=== PATIENT | male | born 1990 | race Caucasian/White ===

== ENCOUNTER 2017-04-17 19:29 | Emergency (ER) | payer OTHER ==
[~2017-04-17] VITALS: Ht 193 cm; Wt 172.7 kg
[2017-04-17 19:35] VITALS: BP 127/82; PULSE 92; RESP 17; O2SAT 97
[2017-04-17] MEDS ORDERED: Ondansetron 2 mg/mL 2 mL Inj IVPUSH PRN (21:10)
[2017-04-17] MEDS ORDERED: 0.9% Sodium Chloride 1,000 ML IV ONE (21:10)
--- NOTE | 2017-04-17 21:11 | ED.REPORT ---
HPI-General Illness Date of Service Apr 17, 2017 ED Provider: Eulalio Moncada MD Patient is a 27 year old male who presents to the ED complaining of epigastric pain that started after being discharged from [facility] on 04/06/17. The patient was initially diagnosed with colitis and discharged with Cipro and Flagyl. Once he went home he received a call where he was told he had an "infarcted spleen" and needed to return to the ED two weeks ago (04/02/17). He states that he had a bumper fall on his hip and abdomen before the abdominal pain had started. The patient was then hospitalized for 4 days. He has continued to experience left sided abdominal pain after being discharged but the epigastric pain is a new symptom. Patient also reports mucousy bowel movements, dark urine and an odd taste in his mouth. The patient reports that the epigastric pain happens about 5 seconds after he swallows and the pain on the left side is constant. He states that it feels like his abdomen is "full of fluids" and pain is exacerbated by deep inhalation. 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 He was apparently sent home to follow up results of hypercoagulable workup with his primary care physician that he has not been seen yet. Nursing Notes Stated Complaint: ABDOMINAL PAIN, HEART PALPITATIONS Chief Complaint: Male Abdominal Pain Nursing Notes Reviewed: Yes Allergies: Coded Allergies: Penicillins (Verified Allergy, Severe, 06/25/09) Scheduled Omeprazole (Omeprazole) 40 Mg Capsule. 40 MG PO DAILY General Time Seen by MD: 21:05 Chief Complaint Abdominal pain Hx Obtained From: Patient Arrived By: Walk-in Sudden in Onset?: Yes Onset Occurred: More than a week ago... (2 weeks) Symptom Duration: Since onset Location: : Abdomen Quality: Burning, Painful Severity: Current: Moderate Recent Healthcare: Recent doctor visit, Recent hospitalization Similar Sx Previous: Yes Past Medical History Past Medical History infarcted spleen Smoking History Unknown if Ever Smoker Social History Other Social History: Good social support Ambulatory Status Independent Review of Systems Full Review of Systems Constitutional: Denies: Chills, Fever Respiratory: Denies: Non-productive cough, Shortness of breath GI: Reports: Abdominal pain, Mucousy stool, Denies: Vomiting Skin: Denies Itching, Denies Rash Complete sys rev & neg: except as marked. Physical Exam Vital Signs Vital Signs Date Time Temp Pulse Resp B/P Pulse Ox O2 Delivery O2 Flow Rate FiO2 04/18/17 00:00 75 18 159/63 97 Room Air 04/17/17 19:35 37.1 92 17 127/82 97 Room Air Initial VS: Reviewed General/Constitutional: Awake, Alert Head / Eyes: Atraumatic, Normocephalic, PERRL, EOMI ENT: Atraumatic, Airway patent slightly dry mucous membranes Respiratory / Chest: Atraumatic, Breath sounds NL, Breath sounds = bilat, No respiratory distress Cardiovascular: Heart rate NL, Regular rhythm, Heart sounds NL, No gallop, No murmurs, No rubs Abdomen: Atraumatic, Soft, No guarding, No rebound mild tender epigastric no rigidity bowel sounds present Upper Extremities Upper Extremity / MS: Atraumatic, Full range of motion Lower Extremity / Pelvis / MS: Atraumatic, Full range of motion, Non-tender, No edema Skin: Atraumatic, Color NL, No rash, Warm, Dry Neurologic: Oriented X3, Speech NL Psychiatric: Affect NL, Mood NL Interpretation & Diagnostics Lab Results Interpretation Result Diagram: 04/17/17212904/17/172129 Test 04/17/17 21:30 04/17/17 21:53 04/17/17 23:40 White Blood Count 7.5th/mm3 (3.8-10.1) Red Blood Count 4.29mil/mm3 (4.40-5.80) Hemoglobin 12.8g/dL (13.8-17.2) Hematocrit 37.0% (41.0-50.0) Mean Corpuscular Volume 86.2fL (81-100) Mean Corpuscular Hemoglobin 29.8pg (27.0-35.0) Mean Corpuscular Hemoglobin Concent 34.6% (32.0-37.0) Red Cell Distribution Width 14.4% (12.3-15.4) Platelet Count 210bil/L (150-400) Neutrophils (%) (Auto) 41.8% (40-74) Lymphocytes (%) (Auto) 43.6% (14-46) Monocytes (%) (Auto) 13.0% (4-12) Eosinophils (%) (Auto) 0.9% (0-5) Basophils (%) (Auto) 0.4% (0-3) Sodium Level 138mEq/L (134-144) Potassium Level 3.9mEq/L (3.5-5.2) Chloride Level 101mEq/L (97-108) Carbon Dioxide Level 24mmol/L (18-29) Blood Urea Nitrogen 13mg/dL (6-20) Creatinine 0.69mg/dL (0.76-1.27) Estimat Glomerular Filtration Rate 144mL/min (>59) Glucose Level 96mg/dL (60-99) Calcium Level 9.2mg/dL (8.5-10.1) Magnesium Level 2.0mg/dL (1.6-2.6) Total Bilirubin 0.4mg/dL (0.0-1.2) Aspartate Amino Transf (AST/SGOT) 35U/L (0-50) Alanine Aminotransferase (ALT/SGPT) 60U/L (0-44) Alkaline Phosphatase 64U/L (25-150) Total Protein 7.0g/dL (6.4-8.4) Albumin 4.1g/dL (3.4-5.0) Lipase 23U/L (13-60) Hold Davis Top Tube Received (Received) Urine Color Yellow (YELLOW) Urine Appearance Clear (CLEAR,HAZY) Urine pH 5.5 (5.0-8.0) Urine Specific Kiron 1.030 (1.003-1.035) Urine Protein Negativemg/dL (NEG,TRACE) Urine Glucose (UA) Negativemg/dL (NEGATIVE) Urine Ketones Negativemg/dL (NEGATIVE) Urine Occult Blood Negative (NEGATIVE) Urine Nitrite Negative (NEGATIVE) Urine Bilirubin Negative (NEGATIVE) Urine Urobilinogen Normalmg/dL (NORMAL) Urine Leukocyte Esterase Negative (NEGATIVE) Urine RBC 0-2/hpf (0-2) Urine WBC 0-5/hpf (0-5) Urine Epithelial Cells Occasional/hpf (NONE-MOD) Urine Crystals Oxalic acid crystals (NONE Urine Bacteria None/hpf (NONE-FEW) Urine Hyaline Casts None/lpf (NONE) Urine Granular Casts None seen (NONE SEEN) Urine Waxy Casts None seen (NONE SEEN) Urine Red Blood Cell Casts None seen (NONE SEEN) Urine White Blood Cell Casts None seen (NONE SEEN) Urine Mucus Present (None Seen) Urine Trichomonas None seen (NONE SEEN) Urine Yeast None (NONE SEEN) Urinalysis Comment None Urine Culture Reflexed Not indicated Re-Eval/Medical Decision Med Decision/Clinical Course Patient is a 27-year-old male with a history of frequent emergency department visits/previous workup, recently discharged from [facility] where he was being worked up for a possible splenic infarct. He presents to the emergency department due to epigastric pain that is worse with eating. He has not followed up with his regular physician Frank was hypercoagulable workup for cause of his splenic infarct. Here in the emergency department the patient is afebrile with stable vital signs and examination as above. Orders: IV fluids, Dilaudid, Zofran and GI cocktail Labs: CBC unremarkable, no leukocytosis CMP unremarkable besides a hematocrit of 37 and mildly elevated ALT at 60. Normal lipase and electrolytes. Good kidney function. UA negative Obtained records from [facility]: CT KUB on 04/02/17 which demonstrated hepatosplenomegaly and splenic infarct. The ultrasound performed on 04/02/17 demonstrated splenomegaly however, no splenic abnormality was identified. The repeat CT on 04/02/17 stated that the hypodensity with the spleen was not demonstrated and the prior might have been due to artifact. Patient has no history or family history hypocoagulability. He was admitted to [facility] with a plan for a hypocoagulability workup and pain control. There was discussion of obtaining a CT angio of the mesentaric vessels, however this was not performed. He was discharged to follow-up with his primary care physician regarding hypercoagulable workup. Patient was discussed in depth with attending radiologist who reviewed his images. It was felt that the information splenic infarct was quite old and was not acute. It was also noted the patient has had many CT scans in the past it was not felt that he would benefit from angiography and that the risks of radiation outweighs any potential benefit. Patient was treated with medications with symptom improvement. He was advised to follow-up with his primary care physician regarding the previously ordered hypercoagulable workup. He was prescribed omeprazole for presumed gastritis. He may need upper endoscopy in the future however he can follow this up through his primary care physician. Prior to discharge follow-up and return precautions were reviewed in detail with the patient who verbalized understanding and agreement with the plan. The patient was discharged in stable condition. Time of Eval: 23:32 Re-Evaluation/Progress Note: Discussed findings and plan for discharge. Patient understands and agrees to plan. All questions were addressed. 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 Given the multiple CTs in recent past, they do not recommend any more imaging. Counseled Regarding: Diagnosis, Lab results, Need for follow-up, When/why to return to ED Discharge & Departure Primary Impression: Gastritis Gastritis type: unspecified gastritis Chronicity: acute Gastritis bleeding : without bleeding Qualified Code: K29.00 - Acute gastritis without bleeding Additional Impressions: Generalized abdominal pain Anxiety Infarction of spleen Disposition: Home Discharge Condition All VS Reviewed: Yes Condition: Stable Patient Instructions: Gastritis (ED) Additional Instructions: Thank you for seeking care at the emergency room. It is difficult for us to make definitive diagnoses in the ED but we believe that you are experiencing gastritis. Take Omeprazole as prescribed. Regarding your splenic infarct, this appeared to be old and you should follow up with [facility] to further review the labs you obtained during your hospitalization. Our primary goal today in the Emergency Department was to evaluate you for any life-threatening conditions. Your evaluation was reassuring. You should follow-up with your primary doctor regarding the tests that you obtained at [facility]. You should return to the Emergency Department immediately if you develop fevers , vomiting, cough, shortness of breath, chest pain, lightheadedness, weakness or any other concerning signs or symptoms. Thank you for letting us partake in your care today. Referrals: Dao Sloan MD (PCP) Scribe Attestation Portions of this note were transcribed by Lisa Mendenhall. I, Dr. Moncada personally performed the history, physical exam and medical decision-making; I reviewed and confirmed the accuracy of the information in the transcribed note. Signed by: Britney Garcia, 04/17/17 copies to: Dao Sloan MD, Beck O MD Apr 17, 2017 21:11 Alexa Mendenhall Apr 17, 2017 21:21
[2017-04-17] MEDS ORDERED: LidocaineVisc 2%:Antacid 1:1 10 mL Syringe PO ONE (21:25)
[2017-04-17 22:00] LABS: BASOPHILS % (AUTO) 0.4 % (0-3); EOSINOPHILS % (AUTO) 0.9 % (0-5); Mean Corpuscular Hemoglobin 29.8 pg (27.0-35.0); Mean Corpuscular Volume 86.2 fL (81-100); NEUTROPHILS % (AUTO) 41.8 % (40-74); Platelet Count 210 bil/L (150-400)
[2017-04-17] MEDS: HYDROmorphone 0.5 mg/0.5 mL iSecure Syringe IVPUSH PRN ×2 (22:05→23:14)
[2017-04-17] MEDS ORDERED: OMEP40CA36 PO (23:36)
[2017-04-18] VITALS: BP 159/63; PULSE 75; RESP 18; O2SAT 97
[2017-04-18 00:21] LABS: APPEARANCE,URINE CLEAR (CLEAR,HAZY); COLOR,URINE YELLOW (YELLOW); OCCULT BLOOD,URINE NEGATIVE (NEGATIVE); PH,URINE 5.5 (5.0-8.0); UROBILINOGEN,URINE NORMAL (NORMAL)
== END 2017-04-18 | disposition home or self-care (01) ==
LOC: SED 19:29
DX: K29.00 Acute gastritis without bleeding (principal); F41.9 Anxiety disorder, unspecified; D73.5 Infarction of spleen; Z88.0 Allergy status to penicillin
CPT/HCPCS: 36415; 80053; 81000; 83690; 83735; 85025; 96361; 96374; 96375; 99285; J1170; J2405; J7030

== ENCOUNTER → 2017-05-20 | Day surgery (SDC) | payer OTHER ==
[~2017-05-20] VITALS: Ht 193 cm; Wt 170.0 kg
[~2017-05-20] MED LIST: Lactated Ringer's 1,000 ML IV ONE; OMEP40CA36 PO
[2017-05-20 11:24] VITALS: BP 137/63; PULSE 78; RESP 16; O2SAT 95
--- NOTE | 2017-05-20 13:22 | PCM.ENDEGD ---
EGD Date of Service: May 20, 2017 Physician Raji Knott MD Pre Procedure Diagnosis: Reflux Post Procedure Dx & Findings: Esophageal ulcer Procedure Esophagogastroduodenoscopy PROCEDURE IN DETAIL: Sedation provided by anesthesiology After proper sedation, Olympus video endoscope was inserted into patient's mouth and esophagus was successfully intubated. Scope introduced esophagus. Esophagus showed normal shiny whitish mucosa consistent with squamous cell component. Z line was at 45 cm from the incisors. Significant inflammation and clean-based ulcer about a centimeter noted. Biopsies were obtained. Go further advanced to the stomach. Stomach showed normal shiny mucosa with normal appearing rugae folds without any ulcer mass erosion. Cardia fundus body antrum pylorus were all visualized. Retroflexion was done. Stomach was easily inflated and deflatable using air. Scope further advanced to the distal duodenum. Duodenum revealed normal villous structures with normal appearing folds without any mass ulcer erosion. Impression Esophagitis and esophageal ulcer clean base Recommendation Patient should resume PPI as prescribed Presedation Assessment Risks and Benefits Informed consent was obtained from the patient after all risks and benefits including but not limited to drug reaction, infection, pain, bleeding, perforation, as well as alternatives were discussed. Patient monitoring Continuous pulse oximetry, cardiac monitoring, blood pressure monitoring, IV access, and oxygen at 2L per nasal cannula. Complications There were no periprocedural complications identified. Post Procedure Plan Post Procedure Recommendations 1. Restrict activities today. 2. Resume normal activities in the morning. 3. Resume medications. 4. GERD behavioral modification: - Avoid fatty, acidic, spicy, large meals - Do not lie down after meals - Do not eat or drink anything for at least 2 1/2 hours before going to bed at night - Discontinue tobacco and alcohol - Decrease or avoid caffeine - Avoid chocolate and mints - Decrease weight - Avoid aspirin and non steroidal anti-inflammatory agents (NSAID) such as Aleve, Advil, Mobic, Naproxen, Ibuprofen, etc 5. Add proton pump inhibitor. Take 30 minutes before 1st meal of the day. 6. Patient informed of normal post procedure side effects as bloating, drowsiness, blood streaking in the stool 7. If gastric biopsy reveal H.pylori, continue with appropriate treatment 8. If small bowel biopsy reveals celiac, continue with appropriate treatment 9. Please don't hesitate to call me with any questions Raji Knott MD May 20, 2017 13:22
--- NOTE | 2017-05-20 13:24 | PCM.ENDCOL ---
Colonoscopy Date of Service: May 20, 2017 Physician Raji Knott MD Pre Procedure Diagnosis: Abdominal pain Post Procedure Dx & Findings: Normal Procedure Colonoscopy PROCEDURE IN DETAIL: Sedation provided by anesthesiology Prep adequate Withdrawal time 7 minutes After unremarkable rectal examination the Olympus video colonoscope was inserted patient's anal canal and was advanced to cecum. Landmarks were identified including the ileocecal valve and appendiceal orifice. Scope was withdrawn systematically. Scope further prevents the terminal ileum advanced 10 cm. Visualized terminal ileum show normal villous structures ulcer mass or erosions. Visualized colonic mucosa showed healthy shiny mucosa with normal healthy-appearing vasculature. In the rectum retroflexion was done which showed hemorrhoids. Anal canal was inspected carefully on the way out and hemorrhoids noted. Impression No source of abdominal pain Hemorrhoids Recommendation Repeat colonoscopy when patient turns 48. Presedation Assessment Risks and Benefits Informed consent was obtained from the patient after all risks and benefits including but not limited to drug reaction, infection, pain, bleeding, perforation, as well as alternatives were discussed. Patient monitoring Continuous pulse oximetry, cardiac monitoring, blood pressure monitoring, IV access, and oxygen at 2L per nasal cannula. Complications There were no periprocedural complications identified. Post Procedure Plan Post Procedure Recommendations 1. Restrict activities today. 2. Resume normal activities in the morning. 3. Resume medications. 4. Patient informed of normal post procedure side effects as bloating, drowsiness, blood streaking in the stool. 5. average risk CRCS. If colon polyps come back as: -Hyperplastic- can repeat colonoscopy in 10 years -Tubular adenoma- repeat colonoscopy in 5 years -Tubulovillous/villous adenoma- repeat colonoscopy in 3 years -If any dysplasia- return to clinic as soon as possible 6. Please don't hesitate to call me with any questions. Raji Knott MD May 20, 2017 13:24
[2017-05-20 13:28] VITALS: BP 126/75; PULSE 85; RESP 16; O2SAT 97
[2017-05-20 13:38] VITALS: BP 158/82; PULSE 82; RESP 16; O2SAT 98
[2017-05-20 13:44] VITALS: BP 147/60; PULSE 85; RESP 16; O2SAT 98
--- NOTE | 2017-05-20 14:13 | PCM.ANEP1 ---
Post Anesthesia PACU Phase 1 Assessment Vital Signs Vital Signs Date Time Temp Pulse Resp B/P Pulse Ox O2 Delivery O2 Flow Rate FiO2 05/20/17 13:44 85 16 147/60 98 Room Air 05/20/17 13:38 82 16 158/82 98 Room Air 05/20/17 13:28 85 16 126/75 97 Room Air 05/20/17 11:24 36.7 78 16 137/63 95 Room Air Anesthetic Administered: MAC Level of Alertness: Awake, talking Pain: No Nausea or Vomiting: No CV Function & Hydration Stable: Yes Airway Device: Oxygen Delivery: Room Air Lungs: Clear to Auscultation PACU Phase 2 Assessment Patient Instructions Provided: N/A Marcus Dominique MD May 20, 2017 14:13
--- NOTE | 2017-05-20 14:13 | PCM.HPANE ---
Patient Data Date of Service: May 20, 2017 Surgeon Admitting Provider: Attending Provider:Raij Knott MD Primary Care Physician:Dao Sloan MD Other Provider: Reason for Visit Colonoscopy Ht/WT & BMI Height (Feet): 6 Height (Inches): 4 Weight (Kilograms): 170 Body Mass Index 45.00 Allergies Coded Allergies: Penicillins (Verified Allergy, Severe, 05/20/17) amoxicillin (Verified Allergy, Unknown, 05/20/17) potassium (Verified Allergy, Unknown, 05/18/17) Past Anesthesia History Anesthesia History: Denies:: Abnormal Airway, Anesthesia Reactions, Difficult Intubation, Fam Anesthesia Reaction, Fam Malignant Hypertherm, Malignant Hyperthermia Diabetes History Hx Diabetes?: No MRSA MRSA: No Medications Active Scripts Omeprazole 40 Mg Capsule.dr40 Mg PO DAILY 30 Days Ref 0 Prov:Eulalio Moncada MD 04/17/17 History History of ENT Problems?: No HEENT History: Positive for:: Dysphagia (SEEMS TO BE RESOLVED) Denies:: Abnormal Airway Difficult Intubation Hearing Problem Denture Type: None Teeth Condition: Within Normal Limits Hx of Heart Problems?: No Cardiovascular History: Denies:: AICD Pacemaker Hx of Respiratory Problem?: Yes (likely severe MEETA, sleep study next week) Respiratory History: Denies:: Asthma Hx Neurologic Problems?: Yes (recent trauma with head injury) Neurological History: Denies:: CVA Hx of GI Problems?: Yes Hx of Problems?: No Hx Musculoskeletal Problems?: No Musculoskeletal History: Denies:: Fibromyalgia Joint Replacement Psycho Social History: Denies:: Anxiety Hx Depression Hx Surgeries?: Yes (ANKLE AND KNEE) Hx Any Other Health Problems?: Yes Hx Diabetes: No Hx Alcohol Use: No (MARIJAUNA) Smoking Status: Unknown if Ever Smoker Stop/Bang Treated for Sleep Apnea?: No Do You Have a CPAP Machine?: No S-Snoring: Do You Snore Loudly: Yes T-Tired: feel tired, fatigued: Yes O-Obsered: Observed not breath: Yes P-Blood Pressure: treated: No B- Body Mass Index > 35 kg/m2: Yes A- Age over 50: No N- Neck Large Circumference: Yes G- Gender Male: Yes MEETA Total Score: 6 MEETA Category 2: Yes Risk Assessment Category Category 1A: Patient has history of documented sleep apnea, and HAS NOT received any narcotic, sedative or anesthesia administration during this stay. Category 1B: Patient has history of documented sleep apnea, and HAS received any narcotic , sedative or anesthesia administration during this stay Category 2: Patient has SUSPECTED Obstructive Sleep Apnea, and HAS received any narcotic , sedative or anesthesia administration during this stay. Category 3: Patient has SUSPECTED Obstructive Sleep Apnea and HAS NOT received narcotic, sedative or anesthesia administration during this stay. Category 4: Outpatient in Procedural Areas with known sleep apnea or who screen positive for High Risk via the STOP/BANG questionnaire. Exam Exam Vital Signs Vital Signs Date Time Temp Pulse Resp B/P Pulse Ox O2 Delivery O2 Flow Rate FiO2 05/20/17 13:44 85 16 147/60 98 Room Air 05/20/17 13:38 82 16 158/82 98 Room Air 05/20/17 13:28 85 16 126/75 97 Room Air 05/20/17 11:24 36.7 78 16 137/63 95 Room Air General Appearance: Alert, Oriented X3, Cooperative HEENT/AIRWAY: MP 3 Lungs: Clear to Auscultation Heart: Exam Unremarkable Meds/Labs/Diagnostics Admission Meds Current Medications Lactated Ringer's (Lr) 1,000 ml @ ud STK-MED ONCE IV Last administered on 05/20t 13:23; Start 05/20/17 at 13:23; Stop 05/20/17 at 13:24; Status DC Plan Impression Patient chart reviewed, patient interviewed and anesthestic plan with risks, benefits, and alternatives discussed, and informed consent obtained. NPO per Anesth. Guidelines: Yes ASA Physical Status: ASA3 Severe Disease Anesthetic Plan: MAC Bene/Risks/Altern/Consents: Yes HP Complete Prior to Induction: Yes Marcus Dominique MD May 20, 2017 14:13
--- NOTE | 2017-05-25 12:24 | PATH ---
SURGICAL PATHOLOGY Attending Physician:Raji Knott M.D. CASE STATUS: Signed Out PATIENT NAME: MELCHOR SOUTH PID: [id number] : 1990 DATE COLLECTED:05/20/2017 00:00 SPECIMEN: Esophagus, Biopsy CLINICAL HISTORY: 1). DISTAL ESOPHAGUS BIOPSY FINAL DIAGNOSIS: Distal Esophagus, Biopsy: Squamous mucosa with active inflammation and reflux-related changes. A PAS stain is negative for fungal organisms. Negative for dysplasia and malignancy. ICD10: R10.13 GROSS DESCRIPTION: The specimen is received in one formalin filled container labeled with the patient's name, sublabeled "distal esophagus" and consists of 2 tiny portions of tissue which aggregate to 0.1 x 0.1 x 0.1 CM. The specimen is entirely submitted in cassette. 05/21/2017DC MICRO DESCRIPTION: A PAS stain was performed to evaluate for fungal organisms and is negative. A control stain showed appropriate reactivity. ICD-9 CODES: CPT CODES: 1: 94520, 35496 Electronically Signed Out Marianna Weston MD [facility] Pathology [facility] [address], [place] [address] Technical component performed at [facility], [facility] [address], [place], [address]
== END | disposition home or self-care (01) ==
LOC: END 11:04
PROVIDERS: ATTEND Internal Medicine
DX: R10.9 Unspecified abdominal pain (principal); K64.8 Other hemorrhoids; K22.10 Ulcer of esophagus without bleeding
CPT/HCPCS: 43239; 45378; 88305; 88312; J7120